=== PATIENT | female | born 1955 | race Caucasian/White ===

== ENCOUNTER 2018-03-30 23:00 | Observation (INO) | payer OTHER ==
[~2018-03-30] VITALS: Ht 165.1 cm; Wt 69.4 kg
--- NOTE | ~2018-03-30 | EKG ---
[address] [address] ELECTROCARDIOGRAM REPORT Name: SHERLYN ANDREWS KAIN Room #: 431-P [facility]..#: [id number] Admission: 03/31/18 Attend Phys: Geo Cruz MD Discharge: Date of : 51 Report #: [id number] THIS REPORT FOR: //name// [facility] ED Test Date: 2018-03-30 Test Time: 23:04:08 Pat Name: SHERLYN ANDREWS Department: Room: Gender: F Gre Tutor: NIKOLAI : 1955 Requested By: Francesco Moreland Order Number: [id number] MD: Dex Oliver Measurements Intervals [place] Rate: 58 P: 64 AK: 170 QRS: 68 QRSD: 86 T: 84 QT: 450 QTc: 443 Interpretive Statements Sinus rhythm Nonspecific ST segment abnormalities No previous ECG available for comparison Electronically Signed On 03-31-2018 7:35:45 CDT by Dex Oliver [email or web address] <ELECTRONICALLY SIGNED> By: Dex Oliver MD 03/31/18 0735 [id number] 2304 Dex Oliver MD /KADY
--- NOTE | ~2018-03-30 | HC ---
[facility] [place] [address] CONSULTATION Name: SHERLYN ANDREWS KAIN Room #: 431-P [facility] Brie Shaver#: [id number] Admission: 03/31/18 Attend Phys: Geo Cruz MD Discharge: 03/31/18 Date of : 51 Report #: [id number] THIS REPORT FOR: //name// CC: Geo Westhi DATE OF SERVICE: 03/31/2018 CARDIOLOGY CONSULTATION INDICATION: Chest pain. HISTORY OF PRESENT ILLNESS: This is a 62-year-old female with a history of GERD, tobacco use, presenting with chest pains. For the past several months, she describes a substernal chest discomfort; it seems to occur at rest. It is not related to physical exertion. She was evaluated at the [facility], diagnosed with GERD and given a prescription for a reflux medication. She ran out of the medication, but reports that she continued to have symptoms even on it. There is no history of palpitations, fever, chills or congestion. She smokes about a pack of cigarettes per day. Over the last 2 days, she has had 2 episodes of chest pain, unrelieved with Nexium. PAST MEDICAL HISTORY: Negative for diabetes, negative for hypertension. ALLERGIES: None. MEDICATIONS: Nexium. SOCIAL HISTORY: Positive tobacco use. FAMILY HISTORY: Negative for premature CAD. REVIEW OF SYSTEMS: A full 10-point review of systems performed. Only the pertinent positives and negatives are described in the HPI. PHYSICAL EXAMINATION: VITAL SIGNS: Blood pressure is 150/60, heart rate is 65 beats per minute. GENERAL APPEARANCE: This is a well-developed, well-nourished female in no acute respiratory distress. HEAD AND EYES: Normocephalic. Sclerae anicteric. ENT: Oral mucosa moist. NECK: Supple. LUNGS: CTA. CARDIAC: Regular rate and rhythm, S1, S2 positive. ABDOMEN: Soft, nontender. EXTREMITIES: No edema, no cyanosis. [facility] [address] [place] [address] CONSULTATION Name: SHERLYN ANDREWS BANNER Room #: [facility] M.R.#: [id number] Admission: 03/31/18 Attend Phys: Geo Cruz MD Discharge: 03/31/18 Date of : 51 Report #: [id number] DIAGNOSTIC DATA: ECG reveals sinus rhythm. LABORATORY DATA: Troponin is negative x 2. Sodium is 140, creatinine 0.9. LDL is 164. White count is 9.3 and hemoglobin is 12.5. ASSESSMENT AND PLAN: 1. Chest pain syndrome. The differential diagnoses include ischemia, musculoskeletal, GI related. Not highly suggestive for ischemia, but she has significant risk factors including tobacco use, borderline hypertension and hypercholesterolemia. We will proceed with non-invasive stress testing. 2. Tobacco use. Complete smoking cessation is recommended. 3. Hypercholesterolemia. Start a statin medication. 4. Borderline hypertension. We will follow for now. <ELECTRONICALLY SIGNED> By: Dex Oliver MD 04/01/18 0812 0837 1125 Dex Oliver MD /gurdeep
[2018-03-30 23:02] VITALS: BP 154/74
[2018-03-30 23:15] LABS: ABSOLUTE NEUTROPHILS 5.8 thou/uL (1.4-8.2); BASOPHILS 1.2 % (0.0-2.0); EOSINOPHILS 2.3 % (0.0-3.0); HEMOGLOBIN 12.5 gm/dL (12.0-15.0); LYMPHOCYTES 25.7 % (24.0-44.0); MCH 28.4 pg (26.0-34.0); MCHC 33.8 g/dL (28.0-37.0); MCV 84.2 fL (80.0-100.0); MONOCYTES 8.7 % (1.0-8.0); PLATELET COUNT 228 thou/uL (150-400); POLYS 62.1 % (36.0-66.0); RBC 4.39 mil/uL (4.20-5.00); RDW 14.7 % (10.5-14.5); WBC 9.3 thou/uL (4.0-11.0)
[2018-03-30 23:22] LABS: ANION GAP 8 mmol/L (7-16); BUN 19 mg/dL (7-18); CALCIUM 9.1 mg/dL (8.5-10.1); CHLORIDE 106 mmol/L (98-107); CO2 26 mmol/L (21-32); GLUCOSE 126 mg/dL (74-106); POTASSIUM 4.1 mmol/L (3.5-5.1); SODIUM 140 mmol/L (136-145)
[2018-03-30 23:30] LABS: ALBUMIN 3.8 g/dL (3.4-5.0); SGOT 31 U/L (15-37); SGPT 23 U/L (30-65); TOTAL BILIRUBIN 0.5 mg/dL (<0.1-1.0); TROPONIN-I < 0.04 ng/mL (<0.06)
[2018-03-30 23:48] LABS: LARGE PLATELETS OCCASIONAL
[2018-03-31 00:37] VITALS: BP 130/54
[2018-03-31 01:42] VITALS: BP 148/56
[2018-03-31 01:45] VITALS: BP 154/51
[2018-03-31] MEDS ORDERED: NEXIUM40 MG PO (02:07)
[2018-03-31] MEDS ORDERED: AFRIN30 ML NASAL (02:10)
[2018-03-31] MEDS ORDERED: OMEPRAZOLE10 MG PO (05:06)
[2018-03-31 08:32] LABS: CALCIUM 9.3 mg/dL (8.5-10.1); CREATININE 0.9 mg/dL (0.6-1.0)
[2018-03-31 08:35] LABS: CHOLESTEROL 210 mg/dL (<200); HDL CHOLESTEROL 37 mg/dL (>40); LDL CHOLESTEROL 164 mg/dL (<100); TC:HDL 5.7 Ratio (Not establshd); TRIGLYCERIDE 49 mg/dL (<150); VLDL 10 mg/dL (<40)
[2018-03-31 08:57] VITALS: BP 126/46
== END 2018-03-31 11:37 | disposition left against medical advice (07) ==
LOC: ER 23:00 → EROBS 03-31 00:25 → 4E 03-31 01:42
PROVIDERS: Emergency Medicine; Nurse Practitioner Family
DX: R07.89 Other chest pain (principal); K21.9 Gastro-esophageal reflux disease without esophagitis; J44.1 Chronic obstructive pulmonary disease with (acute) exacerbation; J32.9 Chronic sinusitis, unspecified; E78.00 Pure hypercholesterolemia, unspecified; R03.0 Elevated blood-pressure reading, without diagnosis of hypertension; I10 Essential (primary) hypertension; J32.4 Chronic pansinusitis; F17.210 Nicotine dependence, cigarettes, uncomplicated; I82.409 Acute embolism and thrombosis of unspecified deep veins of unspecified lower extremity; Z72.0 Tobacco use